=== PATIENT | female | born 1995 | race Caucasian/White ===

== ENCOUNTER 2017-06-22 04:27 | Emergency (ER) | payer BC ==
[~2017-06-22] VITALS: Ht 170.1 cm; Wt 65.8 kg
[~2017-06-22 04:27] MED LIST: MOTRIN600 MG PO; MOTRIN800 MG PO; TYLENOL W/CODEI1 TA2 PO
[2017-06-22 04:34] VITALS: BP 96/62
[2017-06-22 04:51] LABS: BILIRUBIN NEGATIVE (NEGATIVE); BLOOD 1+ (NEGATIVE); CLARITY CLEAR (CLEAR); COLOR YELLOW (YELLOW); GLUCOSE NEGATIVE (NEGATIVE); KETONE NEGATIVE (NEGATIVE); LEUKO ESTERASE NEGATIVE (NEGATIVE); NITRITE NEGATIVE (NEGATIVE); SPECIFIC GRAVITY >= 1.030 (1.005-1.030); UROBILINOGEN 0.2 E.U./dl (0.2-1.0)
[2017-06-22 05:03] LABS: BACTERIA 1+; EPITHELIAL CELLS 60-65
[2017-06-22 05:07] LABS: RED BLOOD COUNT 4.09 10*6/uL (4.10-5.10); WHITE BLOOD COUNT 8.7 10*3/uL (4.8-10.8)
[2017-06-22 05:08] LABS: BASO % 0.3 % (0.0-1.0); EOS # 0.2 10*3/uL (0.0-0.4); EOS % 2.7 % (1.0-4.0); HEMATOCRIT 39.3 % (37.0-47.0); HEMOGLOBIN 13.2 g/dl (12.0-16.0); LYMPH # 2.9 10*3/uL (1.3-4.4); LYMPH % 33.5 % (27.0-41.0); MEAN CELL VOLUME 96.1 fl (81.0-99.0); MEAN CORPUSCULAR HGB 32.3 pg (27.0-31.0); MEAN CORPUSCULAR HGB CONC 33.6 g/dl (33.0-37.0); MEAN PLATELET VOLUME 10.4 fl (9.6-12.3); MONO # 0.6 10*3/uL (0.1-1.0); MONO % 6.8 % (3.0-9.0); NEUT # 4.9 10*3/uL (2.3-7.9); NEUT % 56.5 % (47.0-73.0); PLATELET COUNT AUTOMATED 222 10*3/uL (130-400); RED CELL DISTRI WIDTH 12.1 % (0-14.5)
[2017-06-22 05:25] LABS: ALBUMIN 3.9 gm/dl (3.1-4.5); ALKALINE PHOSPHATASE 69 U/L (45-117); BUN 13 mg/dl (7-24); CHLORIDE 106 mmol/L (98-107); CREATININE 0.64 mg/dL (0.55-1.02); POTASSIUM 3.9 mmol/L (3.5-5.1); SGOT/AST 9 IU/L (3-35); SGPT/ALT 15 U/L (12-78); SODIUM 143 mmol/L (136-145)
== END 2017-06-22 06:42 | disposition home or self-care (01) ==
LOC: ED 04:27
PROVIDERS: Emergency Medicine
DX: R10.9 Unspecified abdominal pain (principal); R11.2 Nausea with vomiting, unspecified

== ENCOUNTER 2017-07-14 11:01 | Emergency (ER) | payer BC ==
[~2017-07-14] VITALS: Ht 172.7 cm; Wt 64.9 kg
[2017-07-14 11:08] VITALS: BP 118/74
== END 2017-07-14 12:18 | disposition home or self-care (01) ==
LOC: ED 11:01
DX: K29.70 Gastritis, unspecified, without bleeding (principal)

== ENCOUNTER 2017-08-10 01:58 | Emergency (ER) | payer BC ==
[~2017-08-10] VITALS: Ht 170.1 cm; Wt 64.9 kg
[2017-08-10 02:05] VITALS: BP 101/54
[2017-08-10 02:51] LABS: BASO % 0.4 % (0.0-1.0); EOS # 0.2 10*3/uL (0.0-0.4); EOS % 1.7 % (1.0-4.0); HEMATOCRIT 40.1 % (37.0-47.0); HEMOGLOBIN 13.5 g/dl (12.0-16.0); LYMPH % 18.2 % (27.0-41.0); MEAN CELL VOLUME 95.9 fl (81.0-99.0); MEAN CORPUSCULAR HGB 32.3 pg (27.0-31.0); MEAN CORPUSCULAR HGB CONC 33.7 g/dl (33.0-37.0); MEAN PLATELET VOLUME 10.6 fl (9.6-12.3); MONO # 0.6 10*3/uL (0.1-1.0); NEUT # 8.3 10*3/uL (2.3-7.9); NEUT % 74.3 % (47.0-73.0); PLATELET COUNT AUTOMATED 241 10*3/uL (130-400); RED BLOOD COUNT 4.18 10*6/uL (4.10-5.10); WHITE BLOOD COUNT 11.2 10*3/uL (4.8-10.8)
[2017-08-10 03:02] LABS: ALBUMIN 4.4 gm/dl (3.1-4.5); ALKALINE PHOSPHATASE 65 U/L (45-117); BUN 10 mg/dl (7-24); CHLORIDE 105 mmol/L (98-107); CREATININE 0.58 mg/dL (0.55-1.02); POTASSIUM 3.8 mmol/L (3.5-5.1); SGOT/AST 10 IU/L (3-35); SGPT/ALT 18 U/L (12-78); SODIUM 140 mmol/L (136-145); TOTAL PROTEIN 7.8 gm/dL (6.4-8.2)
[2017-08-10 03:37] LABS: BILIRUBIN NEGATIVE (NEGATIVE); BLOOD NEGATIVE (NEGATIVE); CLARITY SL CLOUDY (CLEAR); COLOR YELLOW (YELLOW); GLUCOSE NEGATIVE (NEGATIVE); KETONE TRACE (NEGATIVE); LEUKO ESTERASE NEGATIVE (NEGATIVE); NITRITE NEGATIVE (NEGATIVE); SPECIFIC GRAVITY 1.015 (1.005-1.030)
[2017-08-10 03:43] LABS: BACTERIA 1+; MUCOUS 1+
[2017-08-10 05:28] LABS: URINE AMPHETAMINES < 1000 (1000ng/ml); URINE BARBITURATES < 200 (200ng/ml); URINE BENZODIAZEPINES < 200 (200ng/ml); URINE CANNABINOIDS (THC) > 50 (50ng/ml); URINE COCAINE < 300 (300ng/ml); URINE METHADONE < 300 (300ng/ml); URINE OPIATES < 300 (300ng/ml)
[2017-08-10 05:37] LABS: URINE PHENCYCLIDINE < 25 (25ng/ml)
== END 2017-08-10 05:26 | disposition home or self-care (01) ==
LOC: ED 01:58
PROVIDERS: Emergency Medicine
DX: R11.2 Nausea with vomiting, unspecified (principal); R19.7 Diarrhea, unspecified

== ENCOUNTER 2017-09-24 08:10 | Emergency (ER) | payer BC ==
[~2017-09-24] VITALS: Ht 4419 cm; Wt 2.5 kg
[2017-09-24 08:44] LABS: BASO # 0.1 10*3/uL (0.0-0.1); BASO % 0.6 % (0.0-1.0); EOS # 0.2 10*3/uL (0.0-0.4); EOS % 2.2 % (1.0-4.0); HEMATOCRIT 40.2 % (37.0-47.0); HEMOGLOBIN 13.4 g/dl (12.0-16.0); LYMPH # 2.1 10*3/uL (1.3-4.4); LYMPH % 24.7 % (27.0-41.0); MEAN CELL VOLUME 97.3 fl (81.0-99.0); MEAN CORPUSCULAR HGB 32.4 pg (27.0-31.0); MEAN CORPUSCULAR HGB CONC 33.3 g/dl (33.0-37.0); MEAN PLATELET VOLUME 10.5 fl (9.6-12.3); MONO # 0.5 10*3/uL (0.1-1.0); MONO % 5.4 % (3.0-9.0); NEUT # 5.8 10*3/uL (2.3-7.9); NEUT % 66.9 % (47.0-73.0); PLATELET COUNT AUTOMATED 237 10*3/uL (130-400); RED BLOOD COUNT 4.13 10*6/uL (4.10-5.10); RED CELL DISTRI WIDTH 11.9 % (0-14.5); WHITE BLOOD COUNT 8.6 10*3/uL (4.8-10.8)
[2017-09-24 08:52] LABS: BILIRUBIN NEGATIVE (NEGATIVE); BLOOD 3+ (NEGATIVE); CLARITY CLOUDY (CLEAR); COLOR YELLOW (YELLOW); GLUCOSE NEGATIVE (NEGATIVE); KETONE NEGATIVE (NEGATIVE); LEUKO ESTERASE NEGATIVE (NEGATIVE); NITRITE POSITIVE (NEGATIVE); PH 5.5 (5.0-9.0); SPECIFIC GRAVITY 1.025 (1.005-1.030); UROBILINOGEN 0.2 E.U./dl (0.2-1.0)
[2017-09-24 08:58] LABS: ALBUMIN 4.2 gm/dl (3.1-4.5); ALKALINE PHOSPHATASE 64 U/L (45-117); BUN 10 mg/dl (7-24); CHLORIDE 107 mmol/L (98-107); CREATININE 0.65 mg/dL (0.55-1.02); SGOT/AST 8 IU/L (3-35); SGPT/ALT 19 U/L (12-78); SODIUM 140 mmol/L (136-145); TOTAL PROTEIN 7.7 gm/dL (6.4-8.2)
[2017-09-24 09:17] LABS: BACTERIA 4+
[2017-09-24 09:19] LABS: EPITHELIAL CELLS 15-20
[2017-09-24 10:00] VITALS: BP 100/74
[2017-09-24] MEDS ORDERED: NORCO 10-325 T1 EACH PO (11:02)
[2017-09-24] MEDS ORDERED: ZOFRAN ODT4 MG SL (11:02)
== END 2017-09-24 11:21 | disposition home or self-care (01) ==
LOC: ED 08:10
PROVIDERS: Emergency Medicine
DX: K80.81 Other cholelithiasis with obstruction (principal); R51 Headache

== ENCOUNTER 2017-10-02 08:05 | Inpatient (IN) | payer BC ==
[~2017-10-02] VITALS: Ht 170.1 cm; Wt 70.1 kg
[~2017-10-02 08:05] MED LIST changes: +NORCO 10-325 T1 EACH PO; +ZOFRAN ODT4 MG SL
[2017-10-02 08:12] VITALS: BP 96/46
[2017-10-02 08:44] LABS: BILIRUBIN NEGATIVE (NEGATIVE); BLOOD 1+ (NEGATIVE); CLARITY SL CLOUDY (CLEAR); COLOR YELLOW (YELLOW); GLUCOSE NEGATIVE (NEGATIVE); KETONE TRACE (NEGATIVE); LEUKO ESTERASE NEGATIVE (NEGATIVE); NITRITE NEGATIVE (NEGATIVE); PH 5.5 (5.0-9.0); SPECIFIC GRAVITY >= 1.030 (1.005-1.030); UROBILINOGEN 0.2 E.U./dl (0.2-1.0)
[2017-10-02 08:55] LABS: BACTERIA 4+; EPITHELIAL CELLS 20-30; RBC 16-20 rbc/hpf (0-2)
[2017-10-02 09:40] LABS: BASO % 0.5 % (0.0-1.0); EOS # 0.2 10*3/uL (0.0-0.4); EOS % 2.1 % (1.0-4.0); HEMATOCRIT 37.2 % (37.0-47.0); HEMOGLOBIN 12.4 g/dl (12.0-16.0); LYMPH % 24.9 % (27.0-41.0); MEAN CELL VOLUME 96.9 fl (81.0-99.0); MEAN CORPUSCULAR HGB 32.3 pg (27.0-31.0); MEAN CORPUSCULAR HGB CONC 33.3 g/dl (33.0-37.0); MEAN PLATELET VOLUME 10.4 fl (9.6-12.3); MONO # 0.5 10*3/uL (0.1-1.0); MONO % 6.7 % (3.0-9.0); NEUT # 5.2 10*3/uL (2.3-7.9); NEUT % 65.5 % (47.0-73.0); PLATELET COUNT AUTOMATED 198 10*3/uL (130-400); RED BLOOD COUNT 3.84 10*6/uL (4.10-5.10); RED CELL DISTRI WIDTH 11.9 % (0-14.5); WHITE BLOOD COUNT 7.9 10*3/uL (4.8-10.8)
--- NOTE | 2017-10-02 09:53 | NUR ---
ATTEMPTED TO CALL REPORT, NURSE UNAVAILABLE.
[2017-10-02 09:56] LABS: ALBUMIN 3.8 gm/dl (3.1-4.5); ALKALINE PHOSPHATASE 56 U/L (45-117); BUN 14 mg/dl (7-24); CHLORIDE 107 mmol/L (98-107); CREATININE 0.57 mg/dL (0.55-1.02); LIPASE 114 U/L (73-393); POTASSIUM 4.2 mmol/L (3.5-5.1); SGOT/AST 8 IU/L (3-35); SGPT/ALT 16 U/L (12-78); SODIUM 141 mmol/L (136-145); TOTAL PROTEIN 6.7 gm/dL (6.4-8.2)
[2017-10-02 10:05] LABS: BETA-HCG, QUANT < 1.0 mIU/mL (1-3)
--- NOTE | 2017-10-02 10:11 | NUR ---
RESTING IN BED VISITING WITH FAMILY. STATES FEELS BETTER AFTER ZOFRAN AND FENTANYL. NO DISTRESS.
[2017-10-02 10:12] VITALS: BP 105/60
--- NOTE | 2017-10-02 10:20 | NUR ---
A 21, admitted to 5E, under the services of BENJI Cesar DO with a diagnosis of ABDOMINAL PAIN, CHOLELITHASIS. Chief complaint is ABDOMINAL PAIN, RUQ. Patient arrived via wheel chair from ER. Monitor applied. Initial assessment completed. Vital signs taken and recorded. BENJI CESAR DO notified of admission to the unit. Orders received. See assessment for past medical history, medications and allergies. Patient and/or family oriented to unit. [address] visitation policy reviewed. Clothing/patient valuable form completed. DARIO LECHUGA
[2017-10-02 10:30] VITALS: BP 103/47
[2017-10-02 16:00] VITALS: BP 105/41
[2017-10-02 20:00] VITALS: BP 103/54
[2017-10-03] VITALS (9 sets, daily range): BP systolic 104–120; BP diastolic 48–67
[2017-10-03 07:00] LABS: BASO % 0.6 % (0.0-1.0); EOS # 0.2 10*3/uL (0.0-0.4); EOS % 2.9 % (1.0-4.0); HEMATOCRIT 38.4 % (37.0-47.0); HEMOGLOBIN 12.7 g/dl (12.0-16.0); LYMPH # 2.5 10*3/uL (1.3-4.4); LYMPH % 47.7 % (27.0-41.0); MEAN CELL VOLUME 96.7 fl (81.0-99.0); MEAN CORPUSCULAR HGB CONC 33.1 g/dl (33.0-37.0); MEAN PLATELET VOLUME 10.6 fl (9.6-12.3); MONO # 0.4 10*3/uL (0.1-1.0); MONO % 6.8 % (3.0-9.0); NEUT # 2.2 10*3/uL (2.3-7.9); NEUT % 41.8 % (47.0-73.0); PLATELET COUNT AUTOMATED 195 10*3/uL (130-400); RED BLOOD COUNT 3.97 10*6/uL (4.10-5.10); RED CELL DISTRI WIDTH 11.9 % (0-14.5); WHITE BLOOD COUNT 5.1 10*3/uL (4.8-10.8)
[2017-10-03 07:32] LABS: ALBUMIN 3.9 gm/dl (3.1-4.5); CHLORIDE 105 mmol/L (98-107); POTASSIUM 4.1 mmol/L (3.5-5.1); SODIUM 138 mmol/L (136-145)
[2017-10-03 07:39] LABS: ALKALINE PHOSPHATASE 55 U/L (45-117); BUN 8 mg/dl (7-24); CHOLESTEROL 147 mg/dL (<200); CREATININE 0.56 mg/dL (0.55-1.02); FREE T4 1.24 ng/dl (0.76-1.46); HDL CHOLESTEROL 45 mg/dl (40-60); LDL CHOLESTEROL 86 mg/dL (9-159); PHOSPHOROUS 3.2 mg/dL (2.5-4.9); SGOT/AST 9 IU/L (3-35); SGPT/ALT 15 U/L (12-78); TOTAL PROTEIN 6.8 gm/dL (6.4-8.2); TRIGLYCERIDES 81 mg/dl (<150); VLDL CHOLESTEROL 16 mg/dL (6-40)
[2017-10-03 08:15] LABS: VITAMIN D, 25-HYDROXY 20.1 ng/mL (30-100)
--- NOTE | 2017-10-03 09:00 | NUR ---
Pattern Layout Worker in to talk to patient. Patient states lives at home alone. There are 3 steps in the home. Physician: Dr. Michelle Pharmacy: [facility] Home health services: none Patient's level of ADLs: INDEPENDENT Patient has working utilities: yes DME: none Follow-up physician's appointment after d/c: will be made by hospitalist nurse director upon discharge Does patient want to access PORTAL?: no Discharge plan discussed with patient. She is independent in her ADLs and ambulation. When medically stable she will be discharged home. DINORA CARVALHO
--- NOTE | 2017-10-03 16:59 | NUR ---
MEDICATED WITH MORPHINE AND ZOFRAN FOR COMPLAINTS OF PIAN IN ABDOMEN AND NAUSEA. RATES PAIN A 10 ON A PAIN SCALE OF 1-10
--- NOTE | 2017-10-03 17:41 | NUR ---
RESTING WITH EYES CLOSED. MORPHINE EFFECTIVE.
--- NOTE | 2017-10-03 19:00 | NUR ---
CRYING IN PAIN. EXPLAINED THAT IT IS TOO EARLY TO GIVE FURTHER PAIN MED'S.
--- NOTE | 2017-10-03 21:00 | NUR ---
CALLED THE CR. ON ORDERING A NEW PAIN MED DUE TO MORPHINE NOT WORKING LONG ENOUGH. ORDERS WILL BE RECIEVED SHORTLY.
--- NOTE | 2017-10-03 21:00 | NUR ---
PT GIVEN MORPHINE FOR PAIN. WILL CONTINUE TO MONITOR PT.
--- NOTE | 2017-10-03 21:00 | NUR ---
MORPHINE AND ZOFRAN EFFECTIVE. PT SLEEPING. WILL CONTINUE TO MONITOR.
[2017-10-04] VITALS: BP 129/63
--- NOTE | 2017-10-04 00:40 | NUR ---
patient given morphine and zofran per pt request for nausea and abdominal pain rated 7/10 and described as a sharp, stabbing pain. will continue to monitor and reassess.
--- NOTE | 2017-10-04 01:30 | NUR ---
MORPHINE AND ZOFRAN EFFECTIVE. PT SLEEPING. WILL CONTINUE TO MONITOR
[2017-10-04 06:41] LABS: BASO % 0.2 % (0.0-1.0); EOS # 0.1 10*3/uL (0.0-0.4); EOS % 0.5 % (1.0-4.0); HEMATOCRIT 39.2 % (37.0-47.0); HEMOGLOBIN 13.3 g/dl (12.0-16.0); LYMPH # 2.3 10*3/uL (1.3-4.4); LYMPH % 25.1 % (27.0-41.0); MEAN CELL VOLUME 96.1 fl (81.0-99.0); MEAN CORPUSCULAR HGB 32.6 pg (27.0-31.0); MEAN CORPUSCULAR HGB CONC 33.9 g/dl (33.0-37.0); MONO # 0.8 10*3/uL (0.1-1.0); MONO % 8.3 % (3.0-9.0); NEUT # 6.1 10*3/uL (2.3-7.9); NEUT % 65.7 % (47.0-73.0); PLATELET COUNT AUTOMATED 207 10*3/uL (130-400); RED BLOOD COUNT 4.08 10*6/uL (4.10-5.10); RED CELL DISTRI WIDTH 11.8 % (0-14.5); WHITE BLOOD COUNT 9.3 10*3/uL (4.8-10.8)
[2017-10-04 06:48] LABS: ALBUMIN 4.2 gm/dl (3.1-4.5); ALKALINE PHOSPHATASE 61 U/L (45-117); BUN 5 mg/dl (7-24); CHLORIDE 104 mmol/L (98-107); CREATININE 0.65 mg/dL (0.55-1.02); POTASSIUM 3.6 mmol/L (3.5-5.1); SGOT/AST 44 IU/L (3-35); SGPT/ALT 50 U/L (12-78); SODIUM 138 mmol/L (136-145); TOTAL PROTEIN 7.3 gm/dL (6.4-8.2)
[2017-10-04 08:00] VITALS: BP 126/63
--- NOTE | 2017-10-04 08:30 | NUR ---
Confectionery Cooker in to see patient. She denies any home needs. States if breakfast goes well she may be able to be discharged. When medically stable she will be discharged home.
[2017-10-04] MEDS ORDERED: ZOFRAN ODT4 MG SL (08:31)
[2017-10-04] MEDS ORDERED: COLACE100 MG PO (08:31)
[2017-10-04] MEDS ORDERED: Vitamin D PO (08:31)
--- NOTE | 2017-10-04 10:10 | NUR ---
PATIENT WAS GIVEN MORPHINE FOR ABDOMINAL SURGICAL PAIN RATED 5/10. PATIENT ALSO REQUESTED ZOFRAN BECAUSE MORPHINE MAKES HER NAUSEATED. WILL MONITOR.
--- NOTE | 2017-10-04 10:45 | NUR ---
PATIENT RATES PAIN 3/10. IS SATISFIED AND AMBULATING IN DODGE WITH FAMILY. ZOFRAN WAS GIVEN FOR C/O NAUSEA. WILL MONITOR.
[2017-10-04 12:00] VITALS: BP 122/56
--- NOTE | 2017-10-04 12:10 | NUR ---
PATIENT TOLERATED REGULAR DIET FOR LUNCH WELL. SHE STATES SHE IS FEELING FINE AND IS READY TO GO HOME. RELAYED MESSAGE TO KARLO, AWAITING NEW ORDERS.
--- NOTE | 2017-10-04 14:09 | NUR ---
Discharge instructions reviewed with patient/family. Patient receptive and verbalizes understanding. Follow-up care arranged. Written instructions given to patient/family.Patients mother picked up prescriptions from [facility] pharmacy, and was wheeled out by staff member with her family members. REGINALD HOFFMAN
== END 2017-10-04 14:09 | disposition home or self-care (01) | DRG 419 ==
LOC: ED 08:05 → EDHOLD 09:15 → 5E 09:15
PROVIDERS: Emergency Medicine; Internal Medicine; Registered Nurse; ADMIT Internal Medicine
PROC: 0FT44ZZ Resection of Gallbladder, Percutaneous Endoscopic Approach (ICD-10-PCS; principal; 2017-10-03)
PROC: BF131ZZ Fluoroscopy of Gallbladder and Bile Ducts using Low Osmolar Contrast (ICD-10-PCS; principal; 2017-10-03)
DX: K80.10 Calculus of gallbladder with chronic cholecystitis without obstruction (principal); E53.8 Deficiency of other specified B group vitamins; E55.9 Vitamin D deficiency, unspecified; R82.71 Bacteriuria

== ENCOUNTER 2017-12-14 19:58 | Emergency (ER) | payer BC ==
[~2017-12-14] VITALS: Ht 172.7 cm; Wt 64.9 kg
[~2017-12-14 19:58] MED LIST changes: +COLACE100 MG PO; +Vitamin D PO
[2017-12-14 20:10] VITALS: BP 104/64
[2017-12-14 20:41] LABS: BASO % 0.4 % (0.0-1.0); EOS # 0.3 10*3/uL (0.0-0.4); EOS % 3.2 % (1.0-4.0); HEMOGLOBIN 12.4 g/dl (12.0-16.0); LYMPH # 2.7 10*3/uL (1.3-4.4); LYMPH % 34.8 % (27.0-41.0); MEAN CELL VOLUME 96.4 fl (81.0-99.0); MEAN CORPUSCULAR HGB 32.3 pg (27.0-31.0); MEAN CORPUSCULAR HGB CONC 33.5 g/dl (33.0-37.0); MEAN PLATELET VOLUME 10.5 fl (9.6-12.3); MONO # 0.6 10*3/uL (0.1-1.0); MONO % 7.3 % (3.0-9.0); NEUT # 4.2 10*3/uL (2.3-7.9); NEUT % 54.2 % (47.0-73.0); PLATELET COUNT AUTOMATED 227 10*3/uL (130-400); RED BLOOD COUNT 3.84 10*6/uL (4.10-5.10); RED CELL DISTRI WIDTH 11.9 % (0-14.5); WHITE BLOOD COUNT 7.7 10*3/uL (4.8-10.8)
[2017-12-14 20:49] LABS: BILIRUBIN NEGATIVE (NEGATIVE); BLOOD 2+ (NEGATIVE); CLARITY CLEAR (CLEAR); COLOR YELLOW (YELLOW); GLUCOSE NEGATIVE (NEGATIVE); KETONE TRACE (NEGATIVE); LEUKO ESTERASE NEGATIVE (NEGATIVE); NITRITE POSITIVE (NEGATIVE); PH 5.5 (5.0-9.0); SPECIFIC GRAVITY >= 1.030 (1.005-1.030); UROBILINOGEN 0.2 E.U./dl (0.2-1.0)
[2017-12-14 20:56] LABS: ALBUMIN 4.1 gm/dl (3.1-4.5); ALKALINE PHOSPHATASE 64 U/L (45-117); BUN 12 mg/dl (7-24); CHLORIDE 107 mmol/L (98-107); CREATININE 0.59 mg/dL (0.55-1.02); LIPASE 115 U/L (73-393); POTASSIUM 3.8 mmol/L (3.5-5.1); SGOT/AST 12 IU/L (3-35); SGPT/ALT 18 U/L (12-78); SODIUM 141 mmol/L (136-145); TOTAL PROTEIN 7.3 gm/dL (6.4-8.2)
[2017-12-14 21:09] LABS: BACTERIA 4+; EPITHELIAL CELLS 20-25; MUCOUS TRACE
[2017-12-14] MEDS ORDERED: SEPTDS PO (21:13)
== END 2017-12-14 21:11 | disposition home or self-care (01) ==
LOC: ED 19:58
PROVIDERS: Physician Assistant
DX: N39.0 Urinary tract infection, site not specified (principal); R11.2 Nausea with vomiting, unspecified; F10.10 Alcohol abuse, uncomplicated

== ENCOUNTER 2021-01-14 07:41 | Emergency (ER) | payer SELFPAY ==
[~2021-01-14] VITALS: Ht 170.1 cm; Wt 64.4 kg
[~2021-01-14 07:41] MED LIST changes: +ATIVAN1 MG PO; +SEPTDS PO
[2021-01-14 07:48] VITALS: BP 105/55
[2021-01-14] MEDS ORDERED: PHENERGAN25 M3 PO (10:16)
== END 2021-01-14 10:50 | disposition home or self-care (01) ==
LOC: ED 07:41
DX: R11.2 Nausea with vomiting, unspecified (principal); Z79.899 Other long term (current) drug therapy

== ENCOUNTER 2021-09-25 19:42 | Emergency (ER) | payer SELFPAY ==
[~2021-09-25] VITALS: Ht 170.1 cm; Wt 64.4 kg
[~2021-09-25 19:42] MED LIST changes: +PHENERGAN25 M3 PO
[2021-09-26 01:38] LABS: BASO % 0.5 % (0.0-1.0); EOS % 0.7 % (1.0-4.0); LYMPH # 2.2 10*3/uL (1.3-4.4); LYMPH % 37.5 % (27.0-41.0); MEAN CELL VOLUME 100.3 fl (81.0-99.0); MEAN CORPUSCULAR HGB 32.8 pg (27.0-31.0); MEAN CORPUSCULAR HGB CONC 32.7 g/dl (33.0-37.0); MEAN PLATELET VOLUME 10.3 fl (9.6-12.3); MONO # 0.5 10*3/uL (0.1-1.0); MONO % 8.7 % (3.0-9.0); NEUT # 3.1 10*3/uL (2.3-7.9); NEUT % 52.3 % (47.0-73.0); PLATELET COUNT AUTOMATED 206 10*3/uL (130-400); RED BLOOD COUNT 3.69 10*6/uL (4.10-5.10); RED CELL DISTRI WIDTH 11.7 % (0-14.5); WHITE BLOOD COUNT 5.8 10*3/uL (4.8-10.8)
[2021-09-26 01:55] LABS: ALBUMIN 3.4 gm/dl (3.1-4.5); ALKALINE PHOSPHATASE 56 U/L (45-117); BUN 9 mg/dl (7-24); CHLORIDE 111 mmol/L (98-107); CREATININE 0.55 mg/dL (0.55-1.02); POTASSIUM 3.8 mmol/L (3.5-5.1); SGOT/AST 10 IU/L (3-35); SGPT/ALT 23 U/L (12-78); SODIUM 139 mmol/L (136-145); TOTAL PROTEIN 6.4 gm/dL (6.4-8.2)
[2021-09-26 02:43] VITALS: BP 101/56
== END 2021-09-26 03:03 | disposition home or self-care (01) ==
LOC: ED 19:42
PROVIDERS: Emergency Medicine
DX: S09.90XA Unspecified injury of head, initial encounter (principal); R55 Syncope and collapse; R11.2 Nausea with vomiting, unspecified; F17.200 Nicotine dependence, unspecified, uncomplicated; W22.8XXA Striking against or struck by other objects, initial encounter; Y93.89 Activity, other specified; Y92.89 Other specified places as the place of occurrence of the external cause; Y99.8 Other external cause status

== ENCOUNTER 2021-10-04 17:06 | Emergency (ER) | payer SELFPAY ==
[~2021-10-04] VITALS: Ht 172.7 cm; Wt 59.9 kg
[2021-10-04 17:14] VITALS: BP 105/75
== END 2021-10-04 19:48 | disposition left against medical advice (07) ==
LOC: ED 17:06
DX: R51.9 Headache, unspecified (principal); R11.10 Vomiting, unspecified; R19.7 Diarrhea, unspecified; Z53.21 Procedure and treatment not carried out due to patient leaving prior to being seen by health care provider

== ENCOUNTER 2021-12-20 22:35 | Emergency (ER) | payer SELFPAY ==
[~2021-12-20] VITALS: Ht 170.1 cm; Wt 59.9 kg
[2021-12-20 23:31] LABS: BASO % 0.2 % (0.0-1.0); EOS % 0.1 % (1.0-4.0); HEMATOCRIT 36.8 % (37.0-47.0); LYMPH # 0.7 10*3/uL (1.3-4.4); LYMPH % 7.2 % (27.0-41.0); MEAN CELL VOLUME 97.9 fl (81.0-99.0); MEAN CORPUSCULAR HGB 33.2 pg (27.0-31.0); MEAN PLATELET VOLUME 10.3 fl (9.6-12.3); MONO # 0.9 10*3/uL (0.1-1.0); MONO % 8.8 % (3.0-9.0); NEUT # 8.5 10*3/uL (2.3-7.9); NEUT % 83.1 % (47.0-73.0); PLATELET COUNT AUTOMATED 183 10*3/uL (130-400); RED BLOOD COUNT 3.76 10*6/uL (4.10-5.10); RED CELL DISTRI WIDTH 11.9 % (0-14.5); WHITE BLOOD COUNT 10.2 10*3/uL (4.8-10.8)
[2021-12-20 23:46] LABS: BILIRUBIN Negative (Negative); BLOOD 2+ (Negative); CLARITY Turbid (Clear); COLOR Dark Yellow (Yellow); GLUCOSE Negative (Negative); KETONE 2+ (Negative); LEUKO ESTERASE 3+ (Negative); NITRITE Positive (Negative); PH 5.5 (4.5-8.0)
[2021-12-20 23:48] LABS: ALKALINE PHOSPHATASE 73 U/L (45-117); BUN 8 mg/dl (7-24); CHLORIDE 106 mmol/L (98-107); CREATININE 0.67 mg/dL (0.55-1.02); POTASSIUM 3.3 mmol/L (3.5-5.1); SGOT/AST 15 IU/L (3-35); SGPT/ALT 31 U/L (12-78); SODIUM 136 mmol/L (136-145); TOTAL PROTEIN 7.2 gm/dL (6.4-8.2)
[2021-12-21 00:04] LABS: BACTERIA 2+; RBC 16-20 rbc/hpf (0-2); WBC TNTC wbc/hpf (0-5)
[2021-12-21 01:39] VITALS: BP 103/50
[2021-12-21] MEDS ORDERED: CEFDINIR300 MG PO (01:41)
[2021-12-21] MEDS ORDERED: ZOFRAN4 MG PO (01:42)
[2021-12-21] MEDS ORDERED: ULTRAM50 MG PO (01:44)
[2021-12-22] MEDS ORDERED: NAPROXEN250 MG PO (18:03)
[2021-12-22] MEDS ORDERED: CYCLOBENZAPRINE10 MG PO (18:03)
[2021-12-22] MEDS ORDERED: TYLENOL325 M1 PO (18:03)
== END 2021-12-21 02:29 | disposition home or self-care (01) ==
LOC: ED 22:35
PROVIDERS: Emergency Medicine
DX: N12 Tubulo-interstitial nephritis, not specified as acute or chronic (principal); R07.89 Other chest pain; F17.200 Nicotine dependence, unspecified, uncomplicated

== ENCOUNTER 2021-12-22 16:32 | Emergency (ER) | payer SELFPAY ==
[~2021-12-22] VITALS: Ht 170.1 cm; Wt 59.9 kg
[~2021-12-22 16:32] MED LIST changes: +CEFDINIR300 MG PO; +ULTRAM50 MG PO; +ZOFRAN4 MG PO
[2021-12-22 16:37] VITALS: BP 160/73
[2021-12-22] MEDS ORDERED: CYCLOBENZAPRINE10 MG PO (18:03)
[2021-12-22] MEDS ORDERED: TYLENOL325 M1 PO (18:03)
[2021-12-22] MEDS ORDERED: NAPROXEN250 MG PO (18:03)
== END 2021-12-22 18:20 | disposition home or self-care (01) ==
LOC: ED 16:32
DX: M54.9 Dorsalgia, unspecified (principal); Z90.89 Acquired absence of other organs

== ENCOUNTER 2022-04-07 23:12 | Emergency (ER) | payer SELFPAY ==
[~2022-04-07] VITALS: Ht 170.1 cm; Wt 57.6 kg
[~2022-04-07 23:12] MED LIST changes: +CYCLOBENZAPRINE10 MG PO; +NAPROXEN250 MG PO; +TYLENOL325 M1 PO
[2022-04-07 23:21] VITALS: BP 105/51
[2022-04-08] MEDS ORDERED: ANAPROX DS550 MG PO (02:16)
== END 2022-04-08 02:22 | disposition home or self-care (01) ==
LOC: ED 23:12
DX: S46.912A Strain of unspecified muscle, fascia and tendon at shoulder and upper arm level, left arm, initial encounter (principal); Z90.89 Acquired absence of other organs; F17.200 Nicotine dependence, unspecified, uncomplicated; W18.39XA Other fall on same level, initial encounter; Y93.89 Activity, other specified; Y92.89 Other specified places as the place of occurrence of the external cause; Y99.8 Other external cause status

== ENCOUNTER 2022-05-22 07:08 | Emergency (ER) | payer SELFPAY ==
[~2022-05-22] VITALS: Ht 172.7 cm; Wt 60.3 kg
[~2022-05-22 07:08] MED LIST changes: +ANAPROX DS550 MG PO
[2022-05-22 07:15] VITALS: BP 121/76
[2022-05-22 07:55] LABS: BILIRUBIN Negative (Negative); BLOOD Negative (Negative); CLARITY Turbid (Clear); COLOR Yellow (Yellow); GLUCOSE Negative (Negative); KETONE 1+ (Negative); LEUKO ESTERASE 2+ (Negative); NITRITE Negative (Negative)
[2022-05-22 08:03] LABS: BACTERIA 2+; EPITHELIAL CELLS TNTC
[2022-05-22 08:15] LABS: HEMATOCRIT 40.1 % (37.0-47.0); MEAN CELL VOLUME 98.5 fl (81.0-99.0); MEAN CORPUSCULAR HGB 32.2 pg (27.0-31.0); MEAN CORPUSCULAR HGB CONC 32.7 g/dl (33.0-37.0); MEAN PLATELET VOLUME 10.3 fl (9.6-12.3); PLATELET COUNT AUTOMATED 176 10*3/uL (130-400); RED BLOOD COUNT 4.07 10*6/uL (4.10-5.10); RED CELL DISTRI WIDTH 11.8 % (0-14.5); WHITE BLOOD COUNT 4.6 10*3/uL (4.8-10.8)
[2022-05-22 08:22] LABS: MANUAL DIFF REFLEX YES
[2022-05-22 08:34] LABS: BASOPHILS 1 % (0-1); TOTAL CELLS COUNTED 100 #CELLS
[2022-05-22 08:35] LABS: PLATELET SUFFICIENCY NORMAL (NORMAL)
[2022-05-22 08:37] LABS: ALKALINE PHOSPHATASE 69 U/L (45-117); BUN 11 mg/dl (7-24); CHLORIDE 110 mmol/L (98-107); CREATININE 0.71 mg/dL (0.55-1.02); POTASSIUM 3.7 mmol/L (3.5-5.1); SGOT/AST 126 IU/L (3-35); SGPT/ALT 83 U/L (12-78); SODIUM 139 mmol/L (136-145)
== END 2022-05-22 09:24 | disposition home or self-care (01) ==
LOC: ED 07:08
PROVIDERS: Emergency Medicine
DX: U07.1 COVID-19 (principal)

== ENCOUNTER 2023-04-01 21:54 | Emergency (ER) | payer SELFPAY ==
[~2023-04-01] VITALS: Ht 170.1 cm; Wt 68.0 kg
[2023-04-01 22:06] VITALS: BP 113/46
[2023-04-01 22:35] LABS: BASO % 0.5 % (0.0-1.0); EOS # 0.2 10*3/uL (0.0-0.4); EOS % 2.3 % (1.0-4.0); LYMPH # 3.5 10*3/uL (1.3-4.4); LYMPH % 42.8 % (27.0-41.0); MEAN CELL VOLUME 98.5 fl (81.0-99.0); MEAN CORPUSCULAR HGB 32.6 pg (27.0-31.0); MEAN CORPUSCULAR HGB CONC 33.1 g/dl (33.0-37.0); MONO # 0.5 10*3/uL (0.1-1.0); MONO % 6.7 % (3.0-9.0); NEUT # 3.8 10*3/uL (2.3-7.9); NEUT % 47.5 % (47.0-73.0); PLATELET COUNT AUTOMATED 231 10*3/uL (130-400); RED BLOOD COUNT 3.96 10*6/uL (4.10-5.10); RED CELL DISTRI WIDTH 11.7 % (0-14.5); WHITE BLOOD COUNT 8.1 10*3/uL (4.8-10.8)
[2023-04-01 22:47] LABS: ACT PARTIAL THROMBO TIME 31.1 SECONDS (20.0-32.1)
[2023-04-01 22:58] LABS: ALKALINE PHOSPHATASE 63 U/L (46-116); CHLORIDE 109 mmol/L (98-107); POTASSIUM 3.7 mmol/L (3.4-5.1); SGPT/ALT 7 U/L (10-49); TOTAL PROTEIN 6.5 gm/dL (6.0-8.0)
[2023-04-01 23:01] LABS: BUN < 5 mg/dl (9-23)
[2023-04-01] MEDS ORDERED: MELOXICAM15 MG PO (23:38)
== END 2023-04-01 23:40 | disposition home or self-care (01) ==
LOC: ED 21:54
PROVIDERS: Emergency Medicine
DX: R07.89 Other chest pain (principal); R06.02 Shortness of breath; R42 Dizziness and giddiness; F17.200 Nicotine dependence, unspecified, uncomplicated

== ENCOUNTER 2023-08-21 17:16 | Emergency (ER) | payer SELFPAY ==
[~2023-08-21] VITALS: Ht 172.7 cm; Wt 65.8 kg
[~2023-08-21 17:16] MED LIST changes: +MELOXICAM15 MG PO
[2023-08-21 17:35] VITALS: BP 122/71
== END 2023-08-21 20:12 | disposition home or self-care (01) ==
LOC: ED 17:16
DX: T85.9XXA Unspecified complication of internal prosthetic device, implant and graft, initial encounter (principal); Y83.8 Other surgical procedures as the cause of abnormal reaction of the patient, or of later complication, without mention of misadventure at the time of the procedure; Y92.89 Other specified places as the place of occurrence of the external cause

== ENCOUNTER 2025-08-30 00:35 | Emergency (ER) | payer SELFPAY ==
[~2025-08-30] VITALS: Ht 175.2 cm; Wt 73.5 kg
[2025-08-30 01:06] VITALS: BP 120/76
== END 2025-08-30 02:55 | disposition home or self-care (01) ==
LOC: ED 00:35
DX: S60.211A Contusion of right wrist, initial encounter (principal); W22.01XA Walked into wall, initial encounter; Y93.89 Activity, other specified; Y92.89 Other specified places as the place of occurrence of the external cause; Y99.8 Other external cause status